=== PATIENT | male | born 1955 | race Hispanic/Latino ===

== ENCOUNTER 2021-02-10 08:14 | Outpatient (CLI) | payer MEDICARE | END 2021-02-10 08:15 | disposition home or self-care (01) | LOC: BICULT 08:14 | PROVIDERS: ATTEND Internal Medicine | DX: K74.60 Unspecified cirrhosis of liver (principal); R16.1 Splenomegaly, not elsewhere classified; K80.20 Calculus of gallbladder without cholecystitis without obstruction | CPT/HCPCS: 93975 ==

== ENCOUNTER 2021-03-19 08:07 | Outpatient (CLI) | payer MEDICARE | END 2021-03-19 08:08 | disposition home or self-care (01) | LOC: NM 08:07 | PROVIDERS: ATTEND Psychiatry & Neurology Neurology | DX: G20 Parkinson's disease (principal) | CPT/HCPCS: 78803; A9584 ==

== ENCOUNTER 2021-03-22 13:33 | Outpatient (CLI) | payer MEDICARE | END 2021-03-22 13:34 | disposition home or self-care (01) | LOC: BICMRI 13:33 | PROVIDERS: ATTEND Psychiatry & Neurology Neurology | DX: G20 Parkinson's disease (principal); M47.816 Spondylosis without myelopathy or radiculopathy, lumbar region; M47.817 Spondylosis without myelopathy or radiculopathy, lumbosacral region; M48.061 Spinal stenosis, lumbar region without neurogenic claudication; M48.07 Spinal stenosis, lumbosacral region | CPT/HCPCS: 70210; 72148 ==

== ENCOUNTER 2021-06-28 09:25 | Emergency (ER) | payer MEDICARE ==
[2021-06-28 09:48] LABS: #Eosinphils 0.2 thou/uL (0.0-0.7); #Lymphocytes 0.8 thou/uL (1.20-3.40); #Monocytes 0.3 thou/uL (0.11-0.59); #Neutrophils 1.9 thou/uL (1.40-6.50); %Basophils 0.6 % (0.0-1.0); %Eosinophils 6.4 % (0.0-10.0); %Lymphocytes 25.8 % (21.0-51.0); %Monocytes 9.3 % (0.0-10.0); Mean Corpuscular HGB CONC 33.7 g/dL (32.0-36.0); Mean Corpuscular Hemoglobin 35.6 pg (27.0-31.0); Mean Platelet Volume 9.8 fL (7.4-10.4); Platelet Count 45 thou/uL (130-400); RBC Distribution Width 12.5 % (11.5-14.5); Red Blood Cell (RBC) Count 4.21 mill/uL (4.70-6.10); White Blood Cell (WBC) Count 3.2 thou/uL (4.8-10.8)
[2021-06-28 10:05] LABS: INR-International Normal Ratio 1.2; PTT 31.3 sec (22.9-36.1); Prothrombin Time 15.2 sec (12.0-14.7)
[2021-06-28 10:08] LABS: ALT (SGPT) 43 U/L (8-55); AST (SGOT) 85 U/L (5-34); Albumin 2.9 g/dL (3.4-4.8); Alkaline Phosphatase 268 U/L (40-110); Anion Gap 8 mmol/L (10-20); BUN (Urea Nitrogen) 8 mg/dL (8.4-25.7); Bilirubin, Total 3.3 mg/dL (0.2-1.2); Calc. Creatinine Clearance 0 mL/min (70-130); Calcium 8.6 mg/dL (7.8-10.44); Carbon Dioxide 23 mmol/L (23-31); Chloride 109 mmol/L (98-107); Globulin 4.3 g/dL (2.4-3.5); Glucose 188 mg/dL (80-115); Protein, Total 7.2 g/dL (5.8-8.1); Sodium 136 mmol/L (136-145)
== END 2021-06-28 10:40 | disposition home or self-care (01) ==
LOC: ERS 09:25
DX: G51.0 Bell's palsy (principal); Z79.01 Long term (current) use of anticoagulants; Z79.899 Other long term (current) drug therapy
CPT/HCPCS: 70450; 80053; 82550; 84484; 85025; 85610; 85730; 93005; 94760

== ENCOUNTER 2021-11-25 11:25 | Day surgery (SDC) | payer MEDICARE ==
[2021-11-25 11:40] LABS: #Eosinphils 0.2 thou/uL (0.0-0.7); #Lymphocytes 0.8 thou/uL (1.20-3.40); %Basophils 0.4 % (0.0-1.0); %Eosinophils 3.1 % (0.0-10.0); %Lymphocytes 9.7 % (21.0-51.0); %Monocytes 11.9 % (0.0-10.0); Hemoglobin 14.4 g/dL (14.0-18.0); Mean Corpuscular HGB CONC 34.8 g/dL (32.0-36.0); Mean Corpuscular Hemoglobin 36.1 pg (27.0-31.0); Mean Platelet Volume 7.3 fL (7.4-10.4); Platelet Count 134 thou/uL (130-400); RBC Distribution Width 12.1 % (11.5-14.5); Red Blood Cell (RBC) Count 3.99 mill/uL (4.70-6.10)
[2021-11-25 12:02] LABS: INR-International Normal Ratio 1.5; Prothrombin Time 17.8 sec (12.0-14.7)
[2021-11-25] MEDS ORDERED: Lidocaine 1% PF 5 ML VIAL ONE (12:41)
[2021-11-25] MEDS ORDERED: Sodium Chloride 0.9% 10 ML ONE (12:41)
[2021-11-25] MEDS ORDERED: Sodium Bicarbonate 2.5 MEQ/5 ML VIAL ONE (12:41)
[2021-11-25] MEDS ORDERED: Albumin 25% 100 ML ONE (12:59)
[2021-11-27 12:14] LABS: Tube # EDTA
[2021-11-27 12:15] LABS: BF Color Yellow; Clarity Hazy (Clear)
[2021-11-27 15:04] LABS: Body Fluid Source Ascites Body Fluid
[2021-11-27 15:05] LABS: BF RBC Count - Manual 458 /cu.mm; BF WBC/Nonhematics Ct.-Manual 570 /cu.mm
[2021-11-27 15:25] LABS: BF Segmented Neutrophils 54 %; Cell Count Non Hematic 38 %; Lymphocytes 8 %
== END 2021-11-25 13:40 | disposition home or self-care (01) ==
LOC: ULT 11:25
PROVIDERS: ATTEND Physician Assistant Medical
PROC: 0W9G3ZZ Drainage of Peritoneal Cavity, Percutaneous Approach (ICD-10-PCS; principal; 2021-11-25)
DX: K74.60 Unspecified cirrhosis of liver (principal); R18.8 Other ascites; K80.20 Calculus of gallbladder without cholecystitis without obstruction; D73.2 Chronic congestive splenomegaly; B18.2 Chronic viral hepatitis C; G20 Parkinson's disease
CPT/HCPCS: 49083; 76705; 82042; 84155; 85025; 85610; 85730; 87070; 87205; 89051; P9047; 85060; 87077; 87186

== ENCOUNTER 2021-11-28 15:27 | Inpatient (IN) | payer MEDICARE ==
[2021-11-28] MEDS ORDERED: cefTRIAXone\\ROCEPHIN 2 GM VIAL ONE (16:36)
[2021-11-28] MEDS ORDERED: cefTRIAXone\\ROCEPHIN 1 GM VIAL ONE (16:39)
[2021-11-28 18:05] LABS: #Eosinphils 0.1 thou/uL (0.0-0.7); #Lymphocytes 0.6 thou/uL (1.20-3.40); #Monocytes 0.8 thou/uL (0.11-0.59); %Basophils 0.5 % (0.0-1.0); %Eosinophils 2.1 % (0.0-10.0); %Lymphocytes 9.7 % (21.0-51.0); %Monocytes 11.4 % (0.0-10.0); %Neutrophils 76.2 % (42.0-75.0); Hemoglobin 14.2 g/dL (14.0-18.0); Mean Corpuscular HGB CONC 34.6 g/dL (32.0-36.0); Mean Corpuscular Hemoglobin 35.9 pg (27.0-31.0); Mean Platelet Volume 7.4 fL (7.4-10.4); Platelet Count 112 thou/uL (130-400); RBC Distribution Width 11.9 % (11.5-14.5); Red Blood Cell (RBC) Count 3.95 mill/uL (4.70-6.10); White Blood Cell (WBC) Count 6.6 thou/uL (4.8-10.8)
[2021-11-28 18:13] LABS: INR-International Normal Ratio 1.5; PTT 35.7 sec (22.9-36.1); Prothrombin Time 17.9 sec (12.0-14.7)
[2021-11-28 18:17] LABS: Bilirubin Negative (Negative); Blood, Urine Negative (Negative); Clarity Clear (Clear); Glucose, Urine (Dipstick) Normal (Negative); Ketone, Urine Negative (Negative); Leukocyte Negative Leu/uL (Negative); Nitrite Negative (Negative); Protein, Urine (Dipstick) Negative (Neg-Trace); Specific Gravity, Urine 1.018 (1.002-1.036); Urobilinogen 6 mg/dL (Less than 2); pH, Urine 5.5 (5.0-9.0)
[2021-11-28 18:30] LABS: ALT (SGPT) 18 U/L (8-55); AST (SGOT) 38 U/L (5-34); Albumin 2.8 g/dL (3.4-4.8); Alkaline Phosphatase 193 U/L (40-110); Anion Gap 12 mmol/L (10-20); BUN (Urea Nitrogen) 10 mg/dL (8.4-25.7); Bilirubin, Total 3.6 mg/dL (0.2-1.2); Calc. Creatinine Clearance 0 mL/min (70-130); Calcium 8.7 mg/dL (7.8-10.44); Carbon Dioxide 23 mmol/L (23-31); Chloride 103 mmol/L (98-107); Globulin 4.5 g/dL (2.4-3.5); Glucose 149 mg/dL (80-115); Lipase 39 U/L (8-78); Potassium 3.5 mmol/L (3.5-5.1); Protein, Total 7.3 g/dL (5.8-8.1); Sodium 134 mmol/L (136-145)
[2021-11-28] MEDS ORDERED: HYDROcodone/Acetaminophen 5/325 mg Tablet PO PRN (19:48)
[2021-11-28] MEDS ORDERED: Ondansetron PF 4 MG/2 ML Vial IVP PRN (20:00)
[2021-11-28] MEDS ORDERED: Acetaminophen 325 MG TAB PO PRN (20:00)
[2021-11-28] MEDS ORDERED: Ondansetron ODT 4 MG TAB SL PRN (20:00)
[2021-11-28] MEDS ORDERED: Furosemide 40 MG/4 ML VIAL SLOW IVP SCH (20:15)
[2021-11-28] MEDS ORDERED: hydrALAZINE 20 MG/ML VIAL SLOW IVP PRN (20:23)
[2021-11-28 21:12] LABS: SARS-CoV-2 NAA Rapid Test Not Detected (NotDetected)
[2021-11-28] MEDS ORDERED: Famotidine/PF 20 mg/2ml Vial SLOW IVP SCH (21:45)
[2021-11-28] MEDS: Albumin 25% 25 GM/100 ML BOT IVPB SCH (21:58)
[2021-11-28] MEDS ORDERED: VANCOMYCIN 2 GRAM/400 ML BAG 2 GM in Premix Bag 1 BAG IVPB SCH (23:59)
[2021-11-29] MEDS: Albumin 25% 25 GM/100 ML BOT IVPB SCH ×4 (03:09→23:03)
[2021-11-29] MEDS ORDERED: Furosemide 40 MG/4 ML VIAL SLOW IVP SCH (06:00)
[2021-11-29] MEDS: Furosemide 20 MG/2 ML VIAL SLOW IVP SCH ×3 (06:18→22:14)
[2021-11-29 06:19] LABS: #Eosinphils 0.1 thou/uL (0.0-0.7); #Lymphocytes 0.4 thou/uL (1.20-3.40); #Monocytes 0.5 thou/uL (0.11-0.59); #Neutrophils 3.6 thou/uL (1.40-6.50); %Basophils 0.4 % (0.0-1.0); %Eosinophils 3.2 % (0.0-10.0); %Monocytes 11.3 % (0.0-10.0); %Neutrophils 76.1 % (42.0-75.0); Hemoglobin 12.5 g/dL (14.0-18.0); Mean Corpuscular HGB CONC 35.3 g/dL (32.0-36.0); Mean Corpuscular Hemoglobin 37.1 pg (27.0-31.0); Mean Platelet Volume 7.7 fL (7.4-10.4); Platelet Count 85 thou/uL (130-400); RBC Distribution Width 11.8 % (11.5-14.5); Red Blood Cell (RBC) Count 3.38 mill/uL (4.70-6.10); White Blood Cell (WBC) Count 4.7 thou/uL (4.8-10.8)
[2021-11-29 06:50] LABS: ALT (SGPT) 17 U/L (8-55); AST (SGOT) 31 U/L (5-34); Albumin 2.9 g/dL (3.4-4.8); Alkaline Phosphatase 128 U/L (40-110); Anion Gap 12 mmol/L (10-20); BUN (Urea Nitrogen) 9 mg/dL (8.4-25.7); Bilirubin, Total 4.1 mg/dL (0.2-1.2); Calc. Creatinine Clearance 177 mL/min (70-130); Calcium 8.7 mg/dL (7.8-10.44); Carbon Dioxide 23 mmol/L (23-31); Chloride 105 mmol/L (98-107); Globulin 3.6 g/dL (2.4-3.5); Glucose 116 mg/dL (80-115); Potassium 3.5 mmol/L (3.5-5.1); Protein, Total 6.5 g/dL (5.8-8.1); Sodium 136 mmol/L (136-145)
[2021-11-29] MEDS: cefTRIAXone\\ROCEPHIN 2 GM in Sodium Chloride 0.9% 100 ML IVPB SCH (08:49)
[2021-11-29] MEDS ORDERED: Famotidine/PF 20 mg/2ml Vial SLOW IVP SCH (09:00)
[2021-11-29] MEDS: VANCOMYCIN 1.75 GM/350 ML BAG 1.75 GM in Premix Bag 1 BAG IVPB SCH ×2 (11:40→23:00)
[2021-11-29] MEDS: GUAIFENESIN SF SOLN 200 MG/10 ML UDCUP PO PRN ×2 (15:12→23:28)
[2021-11-29] MEDS: Rifaximin 550 MG TAB PO SCH (22:28)
[2021-11-30 04:46] LABS: #Eosinphils 0.2 thou/uL (0.0-0.7); #Lymphocytes 0.4 thou/uL (1.20-3.40); #Monocytes 0.5 thou/uL (0.11-0.59); #Neutrophils 2.7 thou/uL (1.40-6.50); %Basophils 0.5 % (0.0-1.0); %Lymphocytes 9.6 % (21.0-51.0); %Monocytes 13.2 % (0.0-10.0); %Neutrophils 71.8 % (42.0-75.0); Hemoglobin 11.6 g/dL (14.0-18.0); Mean Corpuscular Hemoglobin 36.4 pg (27.0-31.0); Mean Platelet Volume 7.5 fL (7.4-10.4); Platelet Count 75 thou/uL (130-400); RBC Distribution Width 11.8 % (11.5-14.5); Red Blood Cell (RBC) Count 3.19 mill/uL (4.70-6.10); White Blood Cell (WBC) Count 3.8 thou/uL (4.8-10.8)
[2021-11-30 05:10] LABS: ALT (SGPT) 14 U/L (8-55); AST (SGOT) 29 U/L (5-34); Albumin 3.2 g/dL (3.4-4.8); Alkaline Phosphatase 123 U/L (40-110); Anion Gap 12 mmol/L (10-20); BUN (Urea Nitrogen) 8 mg/dL (8.4-25.7); Bilirubin, Total 3.3 mg/dL (0.2-1.2); Calc. Creatinine Clearance 177 mL/min (70-130); Calcium 8.8 mg/dL (7.8-10.44); Carbon Dioxide 22 mmol/L (23-31); Chloride 106 mmol/L (98-107); Globulin 3.2 g/dL (2.4-3.5); Glucose 112 mg/dL (80-115); Potassium 3.3 mmol/L (3.5-5.1); Protein, Total 6.4 g/dL (5.8-8.1); Sodium 137 mmol/L (136-145)
[2021-11-30] MEDS: Albumin 25% 25 GM/100 ML BOT IVPB SCH ×2 (06:14→17:45)
[2021-11-30] MEDS: cefTRIAXone\\ROCEPHIN 2 GM in Sodium Chloride 0.9% 100 ML IVPB SCH (06:16)
[2021-11-30] MEDS: Furosemide 20 MG/2 ML VIAL SLOW IVP SCH ×3 (06:21→22:34)
[2021-11-30 06:27] VITALS: BMI 387.4
[2021-11-30] MEDS: Spironolactone 100 MG TAB PO SCH (09:11)
[2021-11-30] MEDS: Rifaximin 550 MG TAB PO SCH ×2 (09:11→22:34)
[2021-11-30 11:40] LABS: Vancomycin, Trough 14.8 ug/mL
[2021-11-30] MEDS ORDERED: Potassium Chloride 20 MEQ TAB PO SCH (14:15)
[2021-11-30] MEDS: traMADol HCl 50 MG TAB PO PRN (15:25)
[2021-11-30] MEDS: VANCOMYCIN 1.75 GM/350 ML BAG 1.75 GM in Premix Bag 1 BAG IVPB SCH (17:45)
[2021-11-30] MEDS: Carbidopa/Levodopa CR 50-200 mg Tablet PO SCH (22:34)
[2021-11-30] MEDS: GUAIFENESIN SF SOLN 200 MG/10 ML UDCUP PO PRN (22:45)
[2021-12-01] MEDS ORDERED: Albumin 25% 25 GM/100 ML BOT IVPB SCH (01:00)
[2021-12-01] MEDS: cefTRIAXone\\ROCEPHIN 2 GM in Sodium Chloride 0.9% 100 ML IVPB SCH (05:27)
[2021-12-01] MEDS: Furosemide 20 MG/2 ML VIAL SLOW IVP SCH ×2 (05:28→13:38)
[2021-12-01 07:01] LABS: #Eosinphils 0.2 thou/uL (0.0-0.7); #Lymphocytes 0.4 thou/uL (1.20-3.40); #Monocytes 0.6 thou/uL (0.11-0.59); #Neutrophils 3.4 thou/uL (1.40-6.50); %Basophils 0.6 % (0.0-1.0); %Eosinophils 4.1 % (0.0-10.0); %Monocytes 12.4 % (0.0-10.0); %Neutrophils 73.9 % (42.0-75.0); Hemoglobin 12.9 g/dL (14.0-18.0); Mean Corpuscular HGB CONC 34.3 g/dL (32.0-36.0); Mean Corpuscular Hemoglobin 35.9 pg (27.0-31.0); Mean Platelet Volume 7.7 fL (7.4-10.4); Platelet Count 74 thou/uL (130-400); Red Blood Cell (RBC) Count 3.59 mill/uL (4.70-6.10); White Blood Cell (WBC) Count 4.6 thou/uL (4.8-10.8)
[2021-12-01 07:11] LABS: ALT (SGPT) 7 U/L (8-55); AST (SGOT) 42 U/L (5-34); Albumin 3.7 g/dL (3.4-4.8); Alkaline Phosphatase 129 U/L (40-110); Anion Gap 13 mmol/L (10-20); BUN (Urea Nitrogen) 7 mg/dL (8.4-25.7); Bilirubin, Total 3.7 mg/dL (0.2-1.2); Calc. Creatinine Clearance 175 mL/min (70-130); Calcium 9.2 mg/dL (7.8-10.44); Carbon Dioxide 24 mmol/L (23-31); Chloride 107 mmol/L (98-107); Globulin 3.4 g/dL (2.4-3.5); Glucose 108 mg/dL (80-115); Potassium 3.5 mmol/L (3.5-5.1); Protein, Total 7.1 g/dL (5.8-8.1); Sodium 140 mmol/L (136-145)
[2021-12-01] MEDS: Amlodipine 5 MG TAB PO SCH (09:00)
[2021-12-01] MEDS: Carbidopa/Levodopa CR 50-200 mg Tablet PO SCH ×2 (09:00→21:00)
[2021-12-01] MEDS: Spironolactone 100 MG TAB PO SCH (09:00)
[2021-12-01] MEDS: Rifaximin 550 MG TAB PO SCH ×2 (09:01→21:00)
[2021-12-01] MEDS: Ferrous Sulfate 325 MG TAB PO SCH (09:01)
[2021-12-01] MEDS: Escitalopram Oxalate 10 mg Tablet PO SCH (09:04)
[2021-12-01] MEDS: Albumin 25% 25 GM/100 ML BOT IVPB SCH (09:04)
[2021-12-01] MEDS: traMADol HCl 50 MG TAB PO PRN (21:00)
[2021-12-02] MEDS: cefTRIAXone\\ROCEPHIN 2 GM in Sodium Chloride 0.9% 100 ML IVPB SCH (05:54)
[2021-12-02 07:05] LABS: #Basophils 0.1 thou/uL (0.0-0.2); #Eosinphils 0.2 thou/uL (0.0-0.7); #Lymphocytes 0.4 thou/uL (1.20-3.40); #Monocytes 0.6 thou/uL (0.11-0.59); #Neutrophils 3.4 thou/uL (1.40-6.50); %Basophils 1.1 % (0.0-1.0); %Eosinophils 4.3 % (0.0-10.0); %Lymphocytes 8.1 % (21.0-51.0); %Monocytes 12.3 % (0.0-10.0); %Neutrophils 74.2 % (42.0-75.0); Mean Corpuscular HGB CONC 35.3 g/dL (32.0-36.0); Mean Corpuscular Hemoglobin 36.7 pg (27.0-31.0); Mean Platelet Volume 8.1 fL (7.4-10.4); Platelet Count 66 thou/uL (130-400); RBC Distribution Width 11.8 % (11.5-14.5); Red Blood Cell (RBC) Count 3.27 mill/uL (4.70-6.10); White Blood Cell (WBC) Count 4.6 thou/uL (4.8-10.8)
[2021-12-02 07:10] LABS: Anion Gap 12 mmol/L (10-20); BUN (Urea Nitrogen) 9 mg/dL (8.4-25.7); Calc. Creatinine Clearance 164 mL/min (70-130); Calcium 8.5 mg/dL (7.8-10.44); Carbon Dioxide 22 mmol/L (23-31); Chloride 106 mmol/L (98-107); Glucose 102 mg/dL (80-115); Magnesium 1.8 mg/dL (1.6-2.6); Phosphorus 2.5 mg/dL (2.3-4.7); Potassium 3.3 mmol/L (3.5-5.1); Sodium 137 mmol/L (136-145)
[2021-12-02] MEDS: Spironolactone 100 MG TAB PO SCH (09:32)
[2021-12-02] MEDS: Albumin 25% 25 GM/100 ML BOT IVPB SCH (09:32)
[2021-12-02] MEDS: Amlodipine 5 MG TAB PO SCH (09:33)
[2021-12-02] MEDS: Furosemide 40 MG TAB PO SCH ×2 (09:33→14:50)
[2021-12-02] MEDS: Rifaximin 550 MG TAB PO SCH ×2 (09:33→22:04)
[2021-12-02] MEDS: Escitalopram Oxalate 10 mg Tablet PO SCH (09:33)
[2021-12-02] MEDS: Carbidopa/Levodopa CR 50-200 mg Tablet PO SCH ×2 (09:33→22:04)
[2021-12-02] MEDS: Ferrous Sulfate 325 MG TAB PO SCH (09:34)
[2021-12-02] MEDS: GUAIFENESIN SF SOLN 200 MG/10 ML UDCUP PO PRN (09:37)
[2021-12-03] MEDS: cefTRIAXone\\ROCEPHIN 2 GM in Sodium Chloride 0.9% 100 ML IVPB SCH (05:19)
[2021-12-03] MEDS: Carbidopa/Levodopa CR 50-200 mg Tablet PO SCH (08:49)
[2021-12-03] MEDS: Amlodipine 5 MG TAB PO SCH (08:50)
[2021-12-03] MEDS: Escitalopram Oxalate 10 mg Tablet PO SCH (08:50)
[2021-12-03] MEDS: Spironolactone 100 MG TAB PO SCH (08:50)
[2021-12-03] MEDS: Ferrous Sulfate 325 MG TAB PO SCH (08:50)
[2021-12-03] MEDS: Furosemide 40 MG TAB PO SCH ×2 (08:50→15:34)
[2021-12-03] MEDS: Rifaximin 550 MG TAB PO SCH (08:50)
[2021-12-03 12:00] VITALS: BP 121/78; TEMP 97.8
[2021-12-03] MEDS: GUAIFENESIN SF SOLN 200 MG/10 ML UDCUP PO PRN (13:13)
[2021-12-07] MEDS ORDERED: Cholecalciferol 1,000 UNITS (25 MCG) TAB PO SCH (09:00)
== END 2021-12-03 16:30 | disposition home or self-care (01) | DRG 371 ==
LOC: ERS 15:27 → SJJU 19:28 → OBSVTOIN 11-29 11:44
PROVIDERS: ADMIT Internal Medicine; ATTEND Family Medicine
DX: K65.2 Spontaneous bacterial peritonitis (principal); K72.00 Acute and subacute hepatic failure without coma; L03.311 Cellulitis of abdominal wall; R18.8 Other ascites; I85.10 Secondary esophageal varices without bleeding; Z20.822 Contact with and (suspected) exposure to COVID-19; Z23 Encounter for immunization; G20 Parkinson's disease; K74.60 Unspecified cirrhosis of liver; I10 Essential (primary) hypertension; B18.2 Chronic viral hepatitis C; B96.20 Unspecified Escherichia coli [E. coli] as the cause of diseases classified elsewhere; E87.6 Hypokalemia; M54.6 Pain in thoracic spine; Z79.899 Other long term (current) drug therapy
CPT/HCPCS: 36415; 80048; 80053; 80202; 81003; 82140; 83605; 83690; 83735; 84100; 85025; 85610; 85730; 87040; 90471; 90732; 93005; 96375; 96376; G0009; G0378; J0696; J1940; J3370; J3490; P9047; S0028; U0002

== ENCOUNTER 2022-01-11 00:26 | Inpatient (IN) | payer MEDICARE ==
[2022-01-11] MEDS ORDERED: Ondansetron PF 4 MG/2 ML Vial ONE (00:56)
[2022-01-11 00:58] LABS: #Eosinphils 0.1 thou/uL (0.0-0.7); #Lymphocytes 1.9 thou/uL (1.20-3.40); #Monocytes 0.8 thou/uL (0.11-0.59); #Neutrophils 11.5 thou/uL (1.40-6.50); %Basophils 0.2 % (0.0-1.0); %Eosinophils 0.4 % (0.0-10.0); %Lymphocytes 13.2 % (21.0-51.0); %Monocytes 5.9 % (0.0-10.0); %Neutrophils 80.4 % (42.0-75.0); Mean Corpuscular HGB CONC 31.6 g/dL (32.0-36.0); Mean Corpuscular Hemoglobin 34.7 pg (27.0-31.0); Mean Platelet Volume 9.4 fL (7.4-10.4); Platelet Count 88 thou/uL (130-400); RBC Distribution Width 14.2 % (11.5-14.5); Red Blood Cell (RBC) Count 2.32 mill/uL (4.70-6.10); White Blood Cell (WBC) Count 14.3 thou/uL (4.8-10.8)
[2022-01-11 01:08] LABS: Bilirubin Negative (Negative); Blood, Urine Negative (Negative); Clarity Clear (Clear); Glucose, Urine (Dipstick) Normal (Negative); Ketone, Urine 20 mg/dL (Negative); Leukocyte Negative Leu/uL (Negative); Nitrite Negative (Negative); Protein, Urine (Dipstick) 20 mg/dL (Neg-Trace); Specific Gravity, Urine 1.022 (1.002-1.036); Urobilinogen Normal mg/dL (Less than 2)
[2022-01-11 01:15] LABS: INR-International Normal Ratio 2.2; PTT 39.9 sec (22.9-36.1); Prothrombin Time 25.2 sec (12.0-14.7)
[2022-01-11 01:17] LABS: ALT (SGPT) 16 U/L (8-55); AST (SGOT) 29 U/L (5-34); Albumin 2.4 g/dL (3.4-4.8); Alkaline Phosphatase 73 U/L (40-110); Anion Gap 22 mmol/L (10-20); BUN (Urea Nitrogen) 52 mg/dL (8.4-25.7); Bilirubin, Total 4.5 mg/dL (0.2-1.2); Calc. Creatinine Clearance 0 mL/min (70-130); Calcium 8.4 mg/dL (7.8-10.44); Carbon Dioxide 11 mmol/L (23-31); Chloride 106 mmol/L (98-107); Globulin 2.9 g/dL (2.4-3.5); Glucose 217 mg/dL (80-115); Lipase 40 U/L (8-78); Potassium 5.2 mmol/L (3.5-5.1); Protein, Total 5.3 g/dL (5.8-8.1); Sodium 134 mmol/L (136-145)
[2022-01-11 02:33] LABS: SARS-CoV-2 NAA Rapid Test Not Detected (NotDetected)
[2022-01-11] MEDS ORDERED: Vancomycin 1 GM/200 ML BAG ONE ×2 (04:09→05:21)
[2022-01-11] MEDS ORDERED: Piperacillin/Tazobactam 3.375 GM VIAL ONE (04:09)
[2022-01-11] MEDS ORDERED: Pantoprazole 40 MG VIAL ONE ×2 (04:09→07:07)
[2022-01-11] MEDS ORDERED: Ondansetron PF 4 MG/2 ML Vial IVP PRN (06:40)
[2022-01-11] MEDS ORDERED: Pantoprazole 40 MG VIAL IVP SCH (06:45)
[2022-01-11] MEDS ORDERED: Octreotide Acetate 50 MCG/ML AMP SLOW IVP SCH (06:45)
[2022-01-11] MEDS ORDERED: Pantoprazole 80 MG in Sodium Chloride 0.9% 100 ML IVPB SCH (06:45)
[2022-01-11] MEDS ORDERED: Octreotide Acetate 100 MCG/ML VIAL ONE (06:55)
[2022-01-11] MEDS ORDERED: Dextrose 5% in Water 1,000 ML IV PRN (06:58)
[2022-01-11] MEDS ORDERED: Dextrose 50% Abboject 50 ML SYRINGE SLOW IVP PRN (06:58)
[2022-01-11] MEDS ORDERED: HumaLOG 300 UNITS/3 ML VIAL SC PRN ×2 (06:58)
[2022-01-11] MEDS ORDERED: cefTRIAXone\\ROCEPHIN 2 GM in Sodium Chloride 0.9% 100 ML IVPB SCH (07:00)
[2022-01-11] MEDS ORDERED: cefTRIAXone\\ROCEPHIN 2 GM VIAL ONE (07:13)
[2022-01-11] MEDS ORDERED: Pantoprazole 80 MG, Admixture Fee 1 EACH in Sodium Chloride 0.9% 100 ML IVPB SCH (07:15)
[2022-01-11 07:18] VITALS: BMI 36.0
[2022-01-11 07:30] LABS: Hemoglobin 6.8 g/dL (14.0-18.0)
[2022-01-11] MEDS ORDERED: Vancomycin 1 GM in Premix Bag 1 BAG IVPB SCH (07:45)
[2022-01-11] MEDS: Rifaximin 550 MG TAB PO SCH ×2 (08:19→21:25)
[2022-01-11 08:31] LABS: Lactic Acid 12.7 mmol/L (0.5-2.2)
[2022-01-11] MEDS ORDERED: Sodium Chloride 0.9% (PF) 10 ML VIAL FS PRN (09:30)
[2022-01-11] MEDS: Pantoprazole 40 MG VIAL IVP SCH ×2 (09:50→21:26)
[2022-01-11] MEDS: Albumin 25% 25 GM/100 ML BOT IVPB SCH ×3 (10:53→19:24)
[2022-01-11] MEDS ORDERED: Cefepime 1 GM in Sodium Chloride 0.9% 100 ML IVPB SCH (12:00)
[2022-01-11] MEDS ORDERED: Iopamidol 370 76% 100 ML VIAL ONE (12:13)
[2022-01-11 14:46] LABS: Hemoglobin 7.3 g/dL (14.0-18.0)
[2022-01-11] MEDS ORDERED: Phytonadione 10 MG in Sodium Chloride 0.9% 50 ML IVPB SCH (15:30)
[2022-01-11] MEDS: Cefepime 1 GM in Sodium Chloride 0.9% 100 ML IVPB SCH (16:34)
[2022-01-11] MEDS: Vancomycin 25 MG/ML Oral SOLN PO SCH ×2 (19:24→23:22)
[2022-01-11 23:42] LABS: Hemoglobin 5.8 g/dL (14.0-18.0)
[2022-01-12] MEDS: Cefepime 1 GM in Sodium Chloride 0.9% 100 ML IVPB SCH ×2 (03:02→17:13)
[2022-01-12] MEDS: Albumin 25% 25 GM/100 ML BOT IVPB SCH ×2 (03:11→07:24)
[2022-01-12] MEDS: Vancomycin 25 MG/ML Oral SOLN PO SCH ×3 (06:08→17:13)
[2022-01-12 06:38] LABS: #Eosinphils 0.1 thou/uL (0.0-0.7); #Lymphocytes 0.6 thou/uL (1.20-3.40); #Monocytes 0.4 thou/uL (0.11-0.59); #Neutrophils 2.5 thou/uL (1.40-6.50); %Basophils 1.1 % (0.0-1.0); %Eosinophils 3.7 % (0.0-10.0); %Lymphocytes 17.3 % (21.0-51.0); %Monocytes 10.2 % (0.0-10.0); %Neutrophils 67.8 % (42.0-75.0); Mean Corpuscular HGB CONC 33.6 g/dL (32.0-36.0); Mean Corpuscular Hemoglobin 33.5 pg (27.0-31.0); Mean Corpuscular Volume 99.9 fL (78.0-98.0); Mean Platelet Volume 8.5 fL (7.4-10.4); Platelet Count 38 thou/uL (130-400); RBC Distribution Width 15.8 % (11.5-14.5); Red Blood Cell (RBC) Count 2.09 mill/uL (4.70-6.10); White Blood Cell (WBC) Count 3.7 thou/uL (4.8-10.8)
[2022-01-12 06:59] LABS: Anion Gap 9 mmol/L (10-20); BUN (Urea Nitrogen) 36 mg/dL (8.4-25.7); Calc. Creatinine Clearance 147 mL/min (70-130); Calcium 8.6 mg/dL (7.8-10.44); Carbon Dioxide 22 mmol/L (23-31); Chloride 114 mmol/L (98-107); Glucose 138 mg/dL (80-115); Potassium 4.1 mmol/L (3.5-5.1); Sodium 141 mmol/L (136-145)
[2022-01-12] MEDS ORDERED: Ketamine 50 MG/ML (10ML VIAL) ONE (07:09)
[2022-01-12 07:12] LABS: ALT (SGPT) 21 U/L (8-55); AST (SGOT) 45 U/L (5-34); Albumin 3.2 g/dL (3.4-4.8); Alkaline Phosphatase 49 U/L (40-110); Bilirubin, Direct 1.9 mg/dL (0.1-0.3); Bilirubin, Total 4.6 mg/dL (0.2-1.2); Protein, Total 5.5 g/dL (5.8-8.1)
[2022-01-12] MEDS: Rifaximin 550 MG TAB PO SCH ×2 (07:15→20:40)
[2022-01-12] MEDS: Pantoprazole 40 MG VIAL IVP SCH ×2 (07:24→20:41)
[2022-01-12] MEDS ORDERED: VANCOMYCIN 2 GRAM/400 ML BAG 2 GM in Premix Bag 1 BAG IVPB SCH (08:00)
[2022-01-12] MEDS ORDERED: PROPOFOL 200 MG/20 ML VIAL ONE (08:03)
[2022-01-12] MEDS ORDERED: ePHEDrine 50 MG/ML VIAL ONE (08:03)
[2022-01-12 08:23] LABS: INR-International Normal Ratio 2.4; Prothrombin Time 26.2 sec (12.0-14.7)
[2022-01-12] MEDS ORDERED: FLU VACC QS2021-22(65YR UP)/PF 240 MCG/0.7 ML SYRINGE IM ONE (11:45)
[2022-01-12 14:37] LABS: Hemoglobin 8.1 g/dL (14.0-18.0)
[2022-01-12] MEDS: Carbidopa/Levodopa CR 50-200 mg Tablet PO SCH (20:40)
[2022-01-12 23:22] LABS: Hemoglobin 7.6 g/dL (14.0-18.0)
[2022-01-13] MEDS: Vancomycin 25 MG/ML Oral SOLN PO SCH ×4 (00:01→18:23)
[2022-01-13] MEDS: Octreotide Acetate 1,250 MCG in Sodium Chloride 0.9% 250 ML 250 ML IVPB SCH (03:26)
[2022-01-13] MEDS: Cefepime 1 GM in Sodium Chloride 0.9% 100 ML IVPB SCH ×2 (03:26→15:52)
[2022-01-13 03:45] LABS: INR-International Normal Ratio 1.8; Prothrombin Time 21.3 sec (12.0-14.7)
[2022-01-13 03:48] LABS: Anion Gap 10 mmol/L (10-20); BUN (Urea Nitrogen) 21 mg/dL (8.4-25.7); Calc. Creatinine Clearance 143 mL/min (70-130); Carbon Dioxide 20 mmol/L (23-31); Chloride 109 mmol/L (98-107); Glucose 123 mg/dL (80-115); Potassium 3.6 mmol/L (3.5-5.1); Sodium 135 mmol/L (136-145)
[2022-01-13 03:51] LABS: Band 2 % (5-11); Hemoglobin 8.1 g/dL (14.0-18.0); Hypochromia SLIGHT = 6-15 cells (100X) (0-5/hpf); Lymphocytes 4 % (21-51); MDiff Complete? YES; Mean Corpuscular HGB CONC 33.7 g/dL (32.0-36.0); Mean Corpuscular Hemoglobin 33.5 pg (27.0-31.0); Mean Corpuscular Volume 99.3 fL (78.0-98.0); Mean Platelet Volume 8.5 fL (7.4-10.4); Monocytes 6 % (0-10); Neutrophil 88 % (42-75); Nucleated RBC 1 % (0); Platelet Count 41 thou/uL (130-400); Platelet Morphology Comment Appears Decreased; RBC Distribution Width 15.9 % (11.5-14.5); Red Blood Cell (RBC) Count 2.41 mill/uL (4.70-6.10); White Blood Cell (WBC) Count 3.3 thou/uL (4.8-10.8)
[2022-01-13 03:56] LABS: ALT (SGPT) 18 U/L (8-55); AST (SGOT) 91 U/L (5-34); Albumin 3.2 g/dL (3.4-4.8); Alkaline Phosphatase 53 U/L (40-110); Bilirubin, Direct 1.7 mg/dL (0.1-0.3); Bilirubin, Total 3.9 mg/dL (0.2-1.2); Protein, Total 5.3 g/dL (5.8-8.1)
[2022-01-13 07:26] LABS: Vancomycin, Trough 1.1 ug/mL
[2022-01-13] MEDS: Carbidopa/Levodopa CR 50-200 mg Tablet PO SCH ×2 (08:11→22:30)
[2022-01-13] MEDS: Pantoprazole 40 MG VIAL IVP SCH ×2 (08:11→22:32)
[2022-01-13] MEDS: Rifaximin 550 MG TAB PO SCH ×2 (08:12→22:31)
[2022-01-13] MEDS: Escitalopram Oxalate 10 mg Tablet PO SCH (08:13)
[2022-01-13] MEDS: Tamsulosin HCl 0.4 MG CAP PO SCH (08:13)
[2022-01-14] MEDS: Vancomycin 25 MG/ML Oral SOLN PO SCH ×5 (01:25→23:43)
[2022-01-14 04:16] LABS: #Eosinphils 0.2 thou/uL (0.0-0.7); #Lymphocytes 0.5 thou/uL (1.20-3.40); #Monocytes 0.4 thou/uL (0.11-0.59); #Neutrophils 2.7 thou/uL (1.40-6.50); %Eosinophils 5.8 % (0.0-10.0); %Monocytes 10.5 % (0.0-10.0); %Neutrophils 70.8 % (42.0-75.0); Hemoglobin 8.3 g/dL (14.0-18.0); Mean Corpuscular HGB CONC 33.6 g/dL (32.0-36.0); Mean Corpuscular Hemoglobin 33.5 pg (27.0-31.0); Mean Corpuscular Volume 99.6 fL (78.0-98.0); Mean Platelet Volume 9.3 fL (7.4-10.4); Platelet Count 49 thou/uL (130-400); RBC Distribution Width 15.6 % (11.5-14.5); Red Blood Cell (RBC) Count 2.48 mill/uL (4.70-6.10); White Blood Cell (WBC) Count 3.8 thou/uL (4.8-10.8)
[2022-01-14 04:30] LABS: Anion Gap 9 mmol/L (10-20); BUN (Urea Nitrogen) 13 mg/dL (8.4-25.7); Calc. Creatinine Clearance 154 mL/min (70-130); Calcium 7.8 mg/dL (7.8-10.44); Carbon Dioxide 22 mmol/L (23-31); Chloride 105 mmol/L (98-107); Glucose 134 mg/dL (80-115); Potassium 3.3 mmol/L (3.5-5.1); Sodium 133 mmol/L (136-145)
[2022-01-14 04:33] LABS: ALT (SGPT) 22 U/L (8-55); AST (SGOT) 74 U/L (5-34); Alkaline Phosphatase 71 U/L (40-110); Bilirubin, Direct 1.9 mg/dL (0.1-0.3); Bilirubin, Total 3.5 mg/dL (0.2-1.2); Protein, Total 5.3 g/dL (5.8-8.1)
[2022-01-14] MEDS: Cefepime 1 GM in Sodium Chloride 0.9% 100 ML IVPB SCH ×2 (05:58→15:35)
[2022-01-14] MEDS: Tamsulosin HCl 0.4 MG CAP PO SCH (08:56)
[2022-01-14] MEDS: Pantoprazole 40 MG VIAL IVP SCH ×2 (08:56→20:40)
[2022-01-14] MEDS: Escitalopram Oxalate 10 mg Tablet PO SCH (08:56)
[2022-01-14] MEDS: Rifaximin 550 MG TAB PO SCH ×2 (08:56→20:40)
[2022-01-14] MEDS: Carbidopa/Levodopa CR 50-200 mg Tablet PO SCH ×2 (09:00→20:40)
[2022-01-14] MEDS: Octreotide Acetate 1,250 MCG in Sodium Chloride 0.9% 250 ML 250 ML IVPB SCH (12:30)
[2022-01-15] MEDS: Cefepime 1 GM in Sodium Chloride 0.9% 100 ML IVPB SCH ×2 (03:46→15:29)
[2022-01-15] MEDS: Vancomycin 25 MG/ML Oral SOLN PO SCH ×4 (05:09→23:30)
[2022-01-15 06:09] LABS: ALT (SGPT) Less than 7 U/L (8-55); AST (SGOT) 44 U/L (5-34); Albumin 2.8 g/dL (3.4-4.8); Alkaline Phosphatase 83 U/L (40-110); Anion Gap 8 mmol/L (10-20); BUN (Urea Nitrogen) 11 mg/dL (8.4-25.7); Calc. Creatinine Clearance 166 mL/min (70-130); Calcium 7.6 mg/dL (7.8-10.44); Carbon Dioxide 21 mmol/L (23-31); Chloride 107 mmol/L (98-107); Globulin 2.2 g/dL (2.4-3.5); Glucose 132 mg/dL (80-115); Potassium 3.4 mmol/L (3.5-5.1); Sodium 133 mmol/L (136-145)
[2022-01-15 06:34] LABS: #Eosinphils 0.2 thou/uL (0.0-0.7); #Lymphocytes 0.5 thou/uL (1.20-3.40); #Monocytes 0.5 thou/uL (0.11-0.59); #Neutrophils 2.4 thou/uL (1.40-6.50); %Basophils 0.6 % (0.0-1.0); %Eosinophils 5.3 % (0.0-10.0); %Lymphocytes 14.9 % (21.0-51.0); %Monocytes 12.9 % (0.0-10.0); %Neutrophils 66.3 % (42.0-75.0); Hemoglobin 7.9 g/dL (14.0-18.0); Mean Corpuscular HGB CONC 32.7 g/dL (32.0-36.0); Mean Corpuscular Hemoglobin 33.8 pg (27.0-31.0); Platelet Count 46 thou/uL (130-400); RBC Distribution Width 17.8 % (11.5-14.5); Red Blood Cell (RBC) Count 2.35 mill/uL (4.70-6.10); White Blood Cell (WBC) Count 3.6 thou/uL (4.8-10.8)
[2022-01-15 06:35] LABS: Anisocytosis SLIGHT = 6-15 cells (100X) (0-5/hpf); MDiff Complete? YES; Platelet Morphology Comment Appears Decreased; Polychromasia SLIGHT = 2-3 cells (100X) (0-2/hpf)
[2022-01-15] MEDS: Furosemide 40 MG TAB PO SCH (08:09)
[2022-01-15] MEDS: Spironolactone 100 MG TAB PO SCH (08:09)
[2022-01-15] MEDS: Escitalopram Oxalate 10 mg Tablet PO SCH (08:09)
[2022-01-15] MEDS: Carbidopa/Levodopa CR 50-200 mg Tablet PO SCH ×2 (08:10→21:30)
[2022-01-15] MEDS: Rifaximin 550 MG TAB PO SCH ×2 (08:10→21:30)
[2022-01-15] MEDS: Tamsulosin HCl 0.4 MG CAP PO SCH (08:10)
[2022-01-15] MEDS: Pantoprazole 40 MG VIAL IVP SCH ×2 (08:10→21:30)
[2022-01-15] MEDS: EPCLUSA PO SCH (08:13)
[2022-01-15] MEDS: Octreotide Acetate 1,250 MCG in Sodium Chloride 0.9% 250 ML 250 ML IVPB SCH (11:48)
[2022-01-16] MEDS: Cefepime 1 GM in Sodium Chloride 0.9% 100 ML IVPB SCH ×2 (04:38→16:06)
[2022-01-16] MEDS: Vancomycin 25 MG/ML Oral SOLN PO SCH ×3 (05:47→17:27)
[2022-01-16 06:20] LABS: #Eosinphils 0.2 thou/uL (0.0-0.7); #Lymphocytes 0.6 thou/uL (1.20-3.40); #Monocytes 0.4 thou/uL (0.11-0.59); %Basophils 0.8 % (0.0-1.0); %Eosinophils 5.9 % (0.0-10.0); %Lymphocytes 17.7 % (21.0-51.0); %Monocytes 12.6 % (0.0-10.0); %Neutrophils 63.1 % (42.0-75.0); Mean Corpuscular Hemoglobin 34.1 pg (27.0-31.0); Mean Platelet Volume 9.1 fL (7.4-10.4); Platelet Count 46 thou/uL (130-400); RBC Distribution Width 17.4 % (11.5-14.5); Red Blood Cell (RBC) Count 2.33 mill/uL (4.70-6.10); White Blood Cell (WBC) Count 3.2 thou/uL (4.8-10.8)
[2022-01-16] MEDS: Furosemide 40 MG TAB PO SCH (06:30)
[2022-01-16 06:31] LABS: ALT (SGPT) Less than 7 U/L (8-55); AST (SGOT) 32 U/L (5-34); Albumin 2.6 g/dL (3.4-4.8); Alkaline Phosphatase 79 U/L (40-110); Anion Gap 10 mmol/L (10-20); BUN (Urea Nitrogen) 9 mg/dL (8.4-25.7); Bilirubin, Total 3.1 mg/dL (0.2-1.2); Calc. Creatinine Clearance 171 mL/min (70-130); Calcium 7.4 mg/dL (7.8-10.44); Carbon Dioxide 22 mmol/L (23-31); Chloride 108 mmol/L (98-107); Globulin 2.3 g/dL (2.4-3.5); Glucose 113 mg/dL (80-115); Potassium 3.6 mmol/L (3.5-5.1); Protein, Total 4.9 g/dL (5.8-8.1); Sodium 136 mmol/L (136-145)
[2022-01-16] MEDS: Tamsulosin HCl 0.4 MG CAP PO SCH (08:49)
[2022-01-16] MEDS: Carbidopa/Levodopa CR 50-200 mg Tablet PO SCH ×2 (08:49→20:16)
[2022-01-16] MEDS: Escitalopram Oxalate 10 mg Tablet PO SCH (08:49)
[2022-01-16] MEDS: Rifaximin 550 MG TAB PO SCH ×2 (08:49→20:15)
[2022-01-16] MEDS: Pantoprazole 40 MG VIAL IVP SCH ×2 (08:50→20:15)
[2022-01-16] MEDS: Spironolactone 100 MG TAB PO SCH (08:50)
[2022-01-16] MEDS: EPCLUSA PO SCH (08:50)
[2022-01-16] MEDS ORDERED: Furosemide 20 MG/2 ML VIAL SLOW IVP SCH (13:15)
[2022-01-17] MEDS: Vancomycin 25 MG/ML Oral SOLN PO SCH ×3 (00:37→12:20)
[2022-01-17] MEDS: Cefepime 1 GM in Sodium Chloride 0.9% 100 ML IVPB SCH (03:35)
[2022-01-17 07:56] VITALS: BP 103/66; TEMP 98.3
[2022-01-17 07:56] LABS: #Eosinphils 0.2 thou/uL (0.0-0.7); #Lymphocytes 0.7 thou/uL (1.20-3.40); #Monocytes 0.4 thou/uL (0.11-0.59); #Neutrophils 1.9 thou/uL (1.40-6.50); %Basophils 0.6 % (0.0-1.0); %Eosinophils 5.6 % (0.0-10.0); %Lymphocytes 21.8 % (21.0-51.0); %Monocytes 12.3 % (0.0-10.0); %Neutrophils 59.8 % (42.0-75.0); Mean Corpuscular HGB CONC 34.1 g/dL (32.0-36.0); Mean Corpuscular Hemoglobin 34.9 pg (27.0-31.0); Mean Platelet Volume 8.8 fL (7.4-10.4); Platelet Count 50 thou/uL (130-400); RBC Distribution Width 16.2 % (11.5-14.5); Red Blood Cell (RBC) Count 2.29 mill/uL (4.70-6.10); White Blood Cell (WBC) Count 3.2 thou/uL (4.8-10.8)
[2022-01-17 08:06] LABS: ALT (SGPT) 8 U/L (8-55); AST (SGOT) 32 U/L (5-34); Albumin 2.8 g/dL (3.4-4.8); Alkaline Phosphatase 96 U/L (40-110); Anion Gap 7 mmol/L (10-20); BUN (Urea Nitrogen) 9 mg/dL (8.4-25.7); Calc. Creatinine Clearance 152 mL/min (70-130); Calcium 7.6 mg/dL (7.8-10.44); Carbon Dioxide 25 mmol/L (23-31); Chloride 107 mmol/L (98-107); Globulin 2.5 g/dL (2.4-3.5); Glucose 114 mg/dL (80-115); Potassium 3.6 mmol/L (3.5-5.1); Protein, Total 5.3 g/dL (5.8-8.1); Sodium 135 mmol/L (136-145)
[2022-01-17] MEDS: Spironolactone 100 MG TAB PO SCH (08:22)
[2022-01-17] MEDS: Escitalopram Oxalate 10 mg Tablet PO SCH (08:22)
[2022-01-17] MEDS: Rifaximin 550 MG TAB PO SCH (08:22)
[2022-01-17] MEDS: Tamsulosin HCl 0.4 MG CAP PO SCH (08:22)
[2022-01-17] MEDS: Carbidopa/Levodopa CR 50-200 mg Tablet PO SCH (08:22)
[2022-01-17] MEDS: EPCLUSA PO SCH (08:22)
[2022-01-17] MEDS: Furosemide 40 MG TAB PO SCH (08:22)
[2022-01-17] MEDS: Pantoprazole 40 MG VIAL IVP SCH (08:23)
[2022-01-17 11:29] LABS: SARS-CoV-2 PCR by NAA Not Detected (NotDetected)
== END 2022-01-17 14:32 | disposition home or self-care (01) | DRG 871 ==
LOC: ERS 00:26 → ERHOLD 04:10 → IMCU/EMU 08:29 → T4-A 01-14 14:09
PROVIDERS: ADMIT Internal Medicine; ATTEND Internal Medicine
PROC: 30233N1 Transfusion of Nonautologous Red Blood Cells into Peripheral Vein, Percutaneous Approach (ICD-10-PCS; 2022-01-11)
PROC: 3E03329 Introduction of Other Anti-infective into Peripheral Vein, Percutaneous Approach (ICD-10-PCS; 2022-01-11)
PROC: 06L38CZ Occlusion of Esophageal Vein with Extraluminal Device, Via Natural or Artificial Opening Endoscopic (ICD-10-PCS; principal; 2022-01-12)
DX: A41.9 Sepsis, unspecified organism (principal); K72.00 Acute and subacute hepatic failure without coma; I85.11 Secondary esophageal varices with bleeding; E87.2 Acidosis; K92.2 Gastrointestinal hemorrhage, unspecified; R18.8 Other ascites; N17.9 Acute kidney failure, unspecified; D62 Acute posthemorrhagic anemia; D61.818 Other pancytopenia; D68.4 Acquired coagulation factor deficiency; K76.6 Portal hypertension; A04.72 Enterocolitis due to Clostridium difficile, not specified as recurrent; Z20.822 Contact with and (suspected) exposure to COVID-19; I10 Essential (primary) hypertension; R65.20 Severe sepsis without septic shock; G20 Parkinson's disease; B18.2 Chronic viral hepatitis C; N50.89 Other specified disorders of the male genital organs; K31.89 Other diseases of stomach and duodenum; K74.60 Unspecified cirrhosis of liver; E11.69 Type 2 diabetes mellitus with other specified complication; Z79.82 Long term (current) use of aspirin; Z79.899 Other long term (current) drug therapy; Z98.890 Other specified postprocedural states
CPT/HCPCS: 36415; 36416; 36430; 71045; 74177; 80048; 80053; 80076; 80202; 81003; 82010; 82105; 82140; 83605; 83690; 83880; 84484; 85025; 85610; 85730; 86850; 86900; 86901; 87040; 87521; 93005; 96365; 96367; 96374; 96375; C9113; J0692; J0696; J1815; J1940; J2354; J2405; J2543; J2704; J3370; J3430; J3490; J7050; P9016; P9047; Q9967; U0002; U0003; U0005

== ENCOUNTER 2022-03-30 20:57 | Observation (INO) | payer MEDICARE ==
[2022-03-30] MEDS ORDERED: Ondansetron PF 4 MG/2 ML Vial ONE (21:38)
[2022-03-30] MEDS ORDERED: Morphine 4 MG/ML VIAL ONE (21:38)
[2022-03-30 22:06] LABS: ALT (SGPT) 18 U/L (8-55); AST (SGOT) 46 U/L (5-34); Albumin 3.3 g/dL (3.4-4.8); Alkaline Phosphatase 180 U/L (40-110); Anion Gap 14 mmol/L (10-20); BUN (Urea Nitrogen) 6 mg/dL (8.4-25.7); Bilirubin, Total 3.2 mg/dL (0.2-1.2); Calc. Creatinine Clearance 0 mL/min (70-130); Calcium 8.9 mg/dL (7.8-10.44); Carbon Dioxide 19 mmol/L (23-31); Chloride 107 mmol/L (98-107); Globulin 4.5 g/dL (2.4-3.5); Glucose 141 mg/dL (80-115); Lipase 28 U/L (8-78); Protein, Total 7.8 g/dL (5.8-8.1); Sodium 136 mmol/L (136-145)
[2022-03-30 22:10] LABS: #Basophils 0.1 thou/uL (0.0-0.2); #Eosinphils 0.1 thou/uL (0.0-0.7); #Lymphocytes 0.4 thou/uL (1.20-3.40); #Monocytes 0.3 thou/uL (0.11-0.59); #Neutrophils 3.1 thou/uL (1.40-6.50); %Basophils 1.9 % (0.0-1.0); %Eosinophils 2.4 % (0.0-10.0); %Lymphocytes 11.2 % (21.0-51.0); %Monocytes 7.4 % (0.0-10.0); %Neutrophils 77.1 % (42.0-75.0); Anisocytosis SLIGHT = 6-15 cells (100X) (0-5/hpf); Hemoglobin 15.2 g/dL (14.0-18.0); MDiff Complete? YES; Mean Corpuscular HGB CONC 32.4 g/dL (32.0-36.0); Mean Corpuscular Hemoglobin 32.9 pg (27.0-31.0); Platelet Count 43 thou/uL (130-400); Platelet Morphology Comment Appears Decreased; RBC Distribution Width 16.3 % (11.5-14.5); Red Blood Cell (RBC) Count 4.61 mill/uL (4.70-6.10)
[2022-03-30 22:30] LABS: Bacteria/HPF None Seen HPF (None Seen); Bilirubin Negative (Negative); Blood, Urine 1+ (Negative); Clarity Clear (Clear); Glucose, Urine (Dipstick) Normal (Negative); Ketone, Urine Negative (Negative); Leukocyte Negative Leu/uL (Negative); Nitrite Negative (Negative); Protein, Urine (Dipstick) Negative (Neg-Trace); RBC/HPF 0-3 HPF (0-3); Squamous Epithelial 0-3 HPF (0-3); Urobilinogen 6 mg/dL (Less than 2); WBC/HPF 0-3 HPF (0-3); pH, Urine 5.5 (5.0-9.0)
[2022-03-31] MEDS ORDERED: Morphine 4 MG/ML VIAL ONE (00:20)
[2022-03-31 02:47] VITALS: BMI 34.3
[2022-03-31] MEDS ORDERED: Ondansetron ODT 4 MG TAB SL PRN (03:00)
[2022-03-31] MEDS ORDERED: Ondansetron PF 4 MG/2 ML Vial IVP PRN (03:00)
[2022-03-31] MEDS ORDERED: Sodium Chloride 0.9% 1,000 ML IV SCH (03:00)
[2022-03-31] MEDS ORDERED: Morphine 4 MG/ML VIAL SLOW IVP SCH (03:30)
[2022-03-31 05:21] LABS: SARS-CoV-2 NAA Rapid Test Not Detected (NotDetected)
[2022-03-31] MEDS ORDERED: Acetaminophen 325 MG TAB PO PRN (07:43)
[2022-03-31] MEDS ORDERED: Dextrose 5% in Water 1,000 ML IV PRN (07:48)
[2022-03-31] MEDS ORDERED: HumaLOG 300 UNITS/3 ML VIAL SC PRN (07:48)
[2022-03-31] MEDS ORDERED: Dextrose 50% Abboject 50 ML SYRINGE SLOW IVP PRN (07:48)
[2022-03-31] MEDS: Carbidopa/Levodopa CR 50-200 mg Tablet PO SCH ×2 (08:40→20:08)
[2022-03-31] MEDS: Tamsulosin HCl 0.4 MG CAP PO SCH (08:42)
[2022-03-31] MEDS: Spironolactone 25 MG TAB PO SCH ×2 (08:42→20:08)
[2022-03-31] MEDS: Ferrous Sulfate 325 MG TAB PO SCH (08:43)
[2022-03-31] MEDS: Furosemide 40 MG TAB PO SCH (08:43)
[2022-03-31] MEDS: Ciprofloxacin 500 MG TAB PO SCH (08:43)
[2022-03-31] MEDS ORDERED: Sofosbuvir/Velpatasvir [Epclusa 400 Mg-100 Mg Tablet] PO SCH (09:00)
[2022-03-31] MEDS ORDERED: SOFOSBUVIR PO SCH (09:00)
[2022-03-31] MEDS ORDERED: Spironolactone 100 MG TAB PO SCH (09:00)
[2022-03-31] MEDS ORDERED: VELPATASVIR PO SCH (09:00)
[2022-03-31] MEDS ORDERED: Non-Formulary Item 1 EACH (Ferrous Sulfate [Ferrous Sulfate] 325 MG Tab) PO SCH (09:00)
[2022-03-31] MEDS ORDERED: LACTULOSE 10 GM/15 ML PO SCH (09:00)
[2022-03-31] MEDS ORDERED: Non-Formulary Item 1 EACH (Carbidopa/Levodopa [Carbidopa-Levo Er 25-100 Tab] 1 EACH Table PO SCH (09:00)
[2022-03-31] MEDS ORDERED: [UNRECOGNIZED DRUG - OTHER] PO SCH (09:00)
[2022-03-31] MEDS: Escitalopram Oxalate 10 mg Tablet PO SCH (09:18)
[2022-03-31] MEDS ORDERED: ceFAZolin (BATCH) 2 GM in Premix Bag 1 BAG IVPB SCH (14:30)
[2022-04-01 05:39] LABS: INR-International Normal Ratio 1.5; Prothrombin Time 18.4 sec (12.0-14.7)
[2022-04-01 08:28] LABS: #Eosinphils 0.1 thou/uL (0.0-0.7); #Lymphocytes 0.6 thou/uL (1.20-3.40); #Monocytes 0.3 thou/uL (0.11-0.59); #Neutrophils 2.4 thou/uL (1.40-6.50); %Basophils 0.4 % (0.0-1.0); %Lymphocytes 16.7 % (21.0-51.0); %Monocytes 8.2 % (0.0-10.0); %Neutrophils 70.8 % (42.0-75.0); Hemoglobin 13.6 g/dL (14.0-18.0); Mean Corpuscular HGB CONC 32.3 g/dL (32.0-36.0); Mean Corpuscular Hemoglobin 33.3 pg (27.0-31.0); Mean Platelet Volume 9.7 fL (7.4-10.4); Platelet Count 37 thou/uL (130-400); RBC Distribution Width 16.1 % (11.5-14.5); Red Blood Cell (RBC) Count 4.07 mill/uL (4.70-6.10); White Blood Cell (WBC) Count 3.4 thou/uL (4.8-10.8)
[2022-04-01] MEDS: Carbidopa/Levodopa CR 50-200 mg Tablet PO SCH (08:47)
[2022-04-01] MEDS: Spironolactone 25 MG TAB PO SCH (08:50)
[2022-04-01] MEDS: Tamsulosin HCl 0.4 MG CAP PO SCH (08:50)
[2022-04-01] MEDS: Furosemide 40 MG TAB PO SCH (08:50)
[2022-04-01] MEDS: Escitalopram Oxalate 10 mg Tablet PO SCH (08:50)
[2022-04-01] MEDS: Ciprofloxacin 500 MG TAB PO SCH (08:50)
[2022-04-01] MEDS: Ferrous Sulfate 325 MG TAB PO SCH (08:50)
[2022-04-01] MEDS ORDERED: Lidocaine 1% w/Epinephrine 1:100K 20 ML VIAL ONE (09:32)
[2022-04-01] MEDS ORDERED: Bupivacaine PF 0.5% 30 ML VIAL ONE (09:32)
[2022-04-01] MEDS ORDERED: fentaNYL Citrate/PF 100 MCG/2 ML SYRINGE ONE (09:37)
[2022-04-01] MEDS ORDERED: ceFAZolin (BATCH) 2 GM/100 ML BAG ONE (09:46)
[2022-04-01] MEDS ORDERED: PHENYLEPHRINE-NS 100 MCG/ML 10 ML SYRINGE ONE (10:02)
[2022-04-01] MEDS ORDERED: Lidocaine 1% PF 5 ML VIAL ONE (10:02)
[2022-04-01] MEDS ORDERED: ePHEDrine 50 MG/ML VIAL ONE (10:02)
[2022-04-01] MEDS ORDERED: Ondansetron PF 4 MG/2 ML Vial ONE (10:02)
[2022-04-01] MEDS ORDERED: PROPOFOL 200 MG/20 ML VIAL ONE (10:02)
[2022-04-01] MEDS ORDERED: Ondansetron HCl/PF 4 MG/2 ML Vial IVP PRN (10:59)
[2022-04-01] MEDS ORDERED: Promethazine HCl 25 MG/ML VIAL IVPB PRN (10:59)
[2022-04-01] MEDS ORDERED: Promethazine HCl 25 MG/ML VIAL IM PRN (10:59)
[2022-04-01] MEDS ORDERED: traMADol HCl 50 MG TAB PO PRN (11:03)
[2022-04-01 12:25] VITALS: BP 147/81; TEMP 97.5
== END 2022-04-01 14:25 | disposition home or self-care (01) ==
LOC: ERS 20:57 → SURG A 03-31 02:09
PROVIDERS: ADMIT Hospitalist; ATTEND Hospitalist
PROC: 0WQF0ZZ Repair Abdominal Wall, Open Approach (ICD-10-PCS; principal; 2022-04-01)
DX: K42.0 Umbilical hernia with obstruction, without gangrene (principal); K56.609 Unspecified intestinal obstruction, unspecified as to partial versus complete obstruction; B18.2 Chronic viral hepatitis C; K70.31 Alcoholic cirrhosis of liver with ascites; K72.90 Hepatic failure, unspecified without coma; E11.9 Type 2 diabetes mellitus without complications; I10 Essential (primary) hypertension; G20 Parkinson's disease; J90 Pleural effusion, not elsewhere classified; R16.1 Splenomegaly, not elsewhere classified; K80.20 Calculus of gallbladder without cholecystitis without obstruction; F10.21 Alcohol dependence, in remission; K65.2 Spontaneous bacterial peritonitis; F14.11 Cocaine abuse, in remission; D69.6 Thrombocytopenia, unspecified; Z87.891 Personal history of nicotine dependence; Z79.2 Long term (current) use of antibiotics; Z79.84 Long term (current) use of oral hypoglycemic drugs; Z79.899 Other long term (current) drug therapy; Z20.822 Contact with and (suspected) exposure to COVID-19
CPT/HCPCS: 36430; 49587; 71046; 74018; 74177; 80053; 82140; 82962 ×2; 83690; 85025 ×2; 85610; 86850; 86900; 86901; 86920; 93005; 97116; 97139 ×4; P9035; U0002; 36415; 36416; 81003; 81015; 96374; 96375; 96376; G0378; J0690; J1642; J2270; J2405; J2704; J3490; J7050; S0020

== ENCOUNTER 2024-09-12 13:39 | Emergency (ER) | payer MEDICARE ==
[2024-09-12 15:57] LABS: #Basophils 0.04 10x3/uL (0.0-0.2); %Basophils 0.7 % (0.0-1.0); %Eosinophils 3.3 % (0.0-10.0); %Lymphocytes 10.5 % (21.0-51.0); %Monocytes 8.7 % (0.0-10.0); %Neutrophils 76.4 % (42.0-75.0); Hematocrit 44.2 % (42.0-52.0); Hemoglobin 15.4 g/dL (14.0-18.0); Mean Corpuscular HGB CONC 34.8 g/dL (32.0-36.0); Mean Corpuscular Hemoglobin 35.8 pg (27.0-31.0); Mean Corpuscular Volume 102.8 fL (78.0-98.0); Mean Platelet Volume 10.7 fL (7.4-10.4); Platelet Count 44 10x3/uL (130-400); RBC Distribution Width 14.4 % (11.5-14.5)
[2024-09-12 16:08] LABS: Anion Gap 13 mmol/L (10-20); BUN (Urea Nitrogen) 5 mg/dL (8.4-25.7); Calc. Creatinine Clearance 0 mL/min (70-130); Carbon Dioxide 19 mmol/L (23-31); Chloride 110 mmol/L (98-107); Potassium 3.9 mmol/L (3.5-5.1); Sodium 138 mmol/L (136-145)
[2024-09-12 16:09] LABS: ALT (SGPT) 6 U/L (8-55); AST (SGOT) 49 U/L (5-34); Albumin 3.1 g/dL (3.4-4.8); Alkaline Phosphatase 188 U/L (40-110); Calcium 8.6 mg/dL (7.8-10.44); Estimated GFR 99; Globulin 4.4 g/dL (2.4-3.5); Glucose 129 mg/dL (80-115); Protein, Total 7.5 g/dL (5.8-8.1)
== END 2024-09-12 17:06 | disposition home or self-care (01) ==
LOC: ERS 13:39
DX: S09.90XA Unspecified injury of head, initial encounter (principal); I10 Essential (primary) hypertension; E11.9 Type 2 diabetes mellitus without complications; Z87.891 Personal history of nicotine dependence; Z79.899 Other long term (current) drug therapy; Z79.84 Long term (current) use of oral hypoglycemic drugs; W01.10XA Fall on same level from slipping, tripping and stumbling with subsequent striking against unspecified object, initial encounter
CPT/HCPCS: 36415; 70450; 71045; 72125; 72170; 80053; 85025

== ENCOUNTER 2024-09-16 07:59 | Inpatient (IN) | payer MEDICARE ==
[2024-09-16] MEDS ORDERED: Pantoprazole 40 MG VIAL ONE (08:57)
[2024-09-16 08:58] LABS: #Basophils 0.05 10x3/uL (0.0-0.2); %Basophils 0.6 % (0.0-1.0); %Eosinophils 0.7 % (0.0-10.0); %Monocytes 8.8 % (0.0-10.0); %Neutrophils 82.2 % (42.0-75.0); Hematocrit 35.2 % (42.0-52.0); INR-International Normal Ratio 1.7; Mean Corpuscular HGB CONC 33.5 g/dL (32.0-36.0); Mean Corpuscular Hemoglobin 35.9 pg (27.0-31.0); Mean Platelet Volume 11.3 fL (7.4-10.4); PTT 35.2 sec (22.9-36.1); Platelet Count 64 10x3/uL (130-400); Prothrombin Time 19.6 sec (12.0-14.7); RBC Distribution Width 14.6 % (11.5-14.5); Red Blood Cell (RBC) Count 3.29 mill/uL (4.70-6.10)
[2024-09-16] MEDS ORDERED: Octreotide Acetate 1,250 MCG in Sodium Chloride 0.9% 250 ML 250 ML IVPB SCH ×2 (09:00→10:30)
[2024-09-16 09:12] LABS: ALT (SGPT) 22 U/L (8-55); AST (SGOT) 37 U/L (5-34); Albumin 2.6 g/dL (3.4-4.8); Alkaline Phosphatase 109 U/L (40-110); Anion Gap 14 mmol/L (10-20); BUN (Urea Nitrogen) 30 mg/dL (8.4-25.7); Bilirubin, Total 6.2 mg/dL (0.2-1.2); Calc. Creatinine Clearance 0 mL/min (70-130); Calcium 8.5 mg/dL (7.8-10.44); Carbon Dioxide 19 mmol/L (23-31); Chloride 109 mmol/L (98-107); Estimated GFR 98; Globulin 3.5 g/dL (2.4-3.5); Glucose 172 mg/dL (80-115); Lipase 9 U/L (8-78); Potassium 4.8 mmol/L (3.5-5.1); Protein, Total 6.1 g/dL (5.8-8.1); Sodium 137 mmol/L (136-145)
[2024-09-16 10:00] LABS: Bacteria/HPF None Seen HPF (None Seen); Bilirubin Negative (Negative); Blood, Urine 1+ (Negative); CAUTI Indications for Culture Alt mental st,lethar; Clarity Clear (Clear); Glucose, Urine (Dipstick) 30 mg/dL (Negative); Ketone, Urine 10 mg/dL (Negative); Leukocyte Negative Leu/uL (Negative); Nitrite Negative (Negative); Protein, Urine (Dipstick) Negative (Neg-Trace); RBC/HPF 0-3 HPF (0-3); Squamous Epithelial None Seen HPF (0-3); Urobilinogen Normal mg/dL (Less than 2); WBC/HPF 0-3 HPF (0-3)
[2024-09-16 10:02] LABS: Urine Culture Reflex No No
[2024-09-16] MEDS ORDERED: Sodium Chloride 0.9% 100 ML ONE (10:14)
[2024-09-16] MEDS ORDERED: cefTRIAXone (ROCEPHIN) 1 GM VIAL ONE (10:14)
[2024-09-16] MEDS ORDERED: Acetaminophen 650 MG Suppository PR PRN (10:27)
[2024-09-16] MEDS ORDERED: Dextrose 50% Abboject 50 ML SYRINGE SLOW IVP PRN (10:27)
[2024-09-16] MEDS ORDERED: Dextrose 5% in Water 1,000 ML IV PRN (10:27)
[2024-09-16] MEDS ORDERED: Glucagon 1 MG/ML KIT IM PRN (10:27)
[2024-09-16] MEDS ORDERED: Pantoprazole 80 MG in Sodium Chloride 0.9% 100 ML IVP SCH (10:30)
[2024-09-16 11:08] LABS: Hematocrit 27.4 % (42.0-52.0)
[2024-09-16 12:02] LABS: Lactic Acid 3.65 mmol/L (0.5-2.2)
[2024-09-16] MEDS ORDERED: Ondansetron PF 4 MG/2 ML Vial ONE (13:28)
[2024-09-16] MEDS ORDERED: Dexamethasone 20 MG/5 ML VIAL ONE (13:28)
[2024-09-16] MEDS ORDERED: fentaNYL 50 mcg/mL 1 mL Vial ONE (13:28)
[2024-09-16] MEDS ORDERED: Lidocaine 1% PF 5 ML VIAL ONE (13:28)
[2024-09-16] MEDS ORDERED: PROPOFOL 20 ML ONE (13:28)
[2024-09-16] MEDS ORDERED: SUCCINYLCHOLINE/SOD CL,ISO/PF 200 MG/10 ML SYRINGE FS ONE (13:28)
[2024-09-16] MEDS ORDERED: PHENYLEPHRINE-NS 100 MCG/ML 10 ML SYRINGE ONE (13:57)
[2024-09-16 17:39] VITALS: BMI 36.8
[2024-09-16] MEDS: Octreotide Acetate 50 MCG/ML AMP SLOW IVP SCH (18:13)
[2024-09-16] MEDS: Pantoprazole 80 MG, Admixture Fee 1 EACH in Sodium Chloride 0.9% 100 ML IVP SCH (18:13)
[2024-09-16] MEDS: Sodium Chloride 0.9% 1,000 ML IV SCH (18:13)
[2024-09-16] MEDS: Lactulose 20 GM (30 mL) UDCUP PO SCH (18:14)
[2024-09-16 18:42] LABS: Hematocrit 32.3 % (42.0-52.0)
[2024-09-17 00:05] LABS: Hematocrit 30.3 % (42.0-52.0)
[2024-09-17] MEDS ORDERED: Ondansetron ODT 4 MG TAB PO PRN (03:01)
[2024-09-17] MEDS ORDERED: Lorazepam 2 MG/ML VIAL IM PRN (03:01)
[2024-09-17] MEDS ORDERED: Electrolyte Replacement Protocol 1 EACH FS SCH (03:15)
[2024-09-17] MEDS: Lorazepam 1 MG TAB PO PRN (03:25)
[2024-09-17] MEDS: Thiamine HCl 200 MG/2 ML VIAL SLOW IVP SCH (03:25)
[2024-09-17 04:18] LABS: Hematocrit 30.6 % (42.0-52.0)
[2024-09-17 04:33] LABS: INR-International Normal Ratio 1.6; Prothrombin Time 18.7 sec (12.0-14.7)
[2024-09-17 04:36] LABS: ALT (SGPT) 20 U/L (8-55); AST (SGOT) 32 U/L (5-34); Albumin 2.4 g/dL (3.4-4.8); Alkaline Phosphatase 85 U/L (40-110); Anion Gap 12 mmol/L (10-20); BUN (Urea Nitrogen) 26 mg/dL (8.4-25.7); Bilirubin, Total 2.9 mg/dL (0.2-1.2); Calc. Creatinine Clearance 152 mL/min (70-130); Calcium 7.9 mg/dL (7.8-10.44); Carbon Dioxide 16 mmol/L (23-31); Chloride 115 mmol/L (98-107); Estimated GFR 99; Glucose 206 mg/dL (80-115); Potassium 4.1 mmol/L (3.5-5.1); Protein, Total 5.4 g/dL (5.8-8.1); Sodium 139 mmol/L (136-145)
[2024-09-17] MEDS: Multivit, Therapeutic 1 TAB PO SCH (08:52)
[2024-09-17] MEDS: Folic Acid 1 MG TAB PO SCH (08:52)
[2024-09-17] MEDS: Escitalopram Oxalate 10 mg Tablet PO SCH (08:52)
[2024-09-17] MEDS: Carbidopa/Levodopa [Carbidopa-Levo Er 25-100 Tab] PO SCH (10:13)
[2024-09-17 10:37] LABS: Lactic Acid 2.14 mmol/L (0.5-2.2)
[2024-09-17 10:41] LABS: Iron 156 ug/dL (65-175); Iron Binding Capacity, Total 210 mcg/dL (261-462)
[2024-09-17] MEDS: Insulin Lispro 100 UNIT/ML 10 ML VIAL SC PRN (11:32)
[2024-09-17] MEDS: Rifaximin 550 MG TAB PO SCH ×3 (11:33→20:23)
[2024-09-17 13:00] LABS: Hemoglobin 11.2 g/dL (14.0-18.0)
[2024-09-17] MEDS: Acetaminophen 325 MG TAB PO PRN (14:58)
[2024-09-18] MEDS ORDERED: Lorazepam 1 MG TAB PO PRN (03:01)
[2024-09-18 04:59] LABS: #Basophils Less than 0.03 10x3/uL (0.0-0.2); %Basophils 0.3 % (0.0-1.0); %Eosinophils 0.9 % (0.0-10.0); %Lymphocytes 10.3 % (21.0-51.0); %Monocytes 6.9 % (0.0-10.0); %Neutrophils 80.7 % (42.0-75.0); Hematocrit 29.6 % (42.0-52.0); Hemoglobin 9.5 g/dL (14.0-18.0); Mean Corpuscular HGB CONC 32.1 g/dL (32.0-36.0); Mean Corpuscular Hemoglobin 36.1 pg (27.0-31.0); Mean Corpuscular Volume 112.5 fL (78.0-98.0); Mean Platelet Volume 12.7 fL (7.4-10.4); Platelet Count 39 10x3/uL (130-400); RBC Distribution Width 14.7 % (11.5-14.5); Red Blood Cell (RBC) Count 2.63 mill/uL (4.70-6.10)
[2024-09-18 05:44] LABS: Anion Gap 12 mmol/L (10-20); BUN (Urea Nitrogen) 16 mg/dL (8.4-25.7); Calc. Creatinine Clearance 156 mL/min (70-130); Calcium 7.6 mg/dL (7.8-10.44); Carbon Dioxide 16 mmol/L (23-31); Chloride 115 mmol/L (98-107); Estimated GFR 100; Glucose 146 mg/dL (80-115); Potassium 4.4 mmol/L (3.5-5.1); Sodium 139 mmol/L (136-145)
[2024-09-18] MEDS ORDERED: Carbidopa/Levodopa 25-100 mg Tablet PO SCH (09:00)
[2024-09-18] MEDS: Pantoprazole DR 40 MG TAB PO SCH (20:17)
[2024-09-19] MEDS ORDERED: Lorazepam 1 MG TAB PO PRN (03:01)
[2024-09-19 04:49] LABS: #Basophils 0.03 10x3/uL (0.0-0.2); %Basophils 0.8 % (0.0-1.0); %Eosinophils 3.8 % (0.0-10.0); %Lymphocytes 12.3 % (21.0-51.0); %Monocytes 10.7 % (0.0-10.0); %Neutrophils 71.6 % (42.0-75.0); Anion Gap 7 mmol/L (10-20); BUN (Urea Nitrogen) 13 mg/dL (8.4-25.7); Calc. Creatinine Clearance 133 mL/min (70-130); Calcium 7.3 mg/dL (7.8-10.44); Carbon Dioxide 19 mmol/L (23-31); Chloride 115 mmol/L (98-107); Estimated GFR 95; Glucose 159 mg/dL (80-115); Hematocrit 29.2 % (42.0-52.0); Hemoglobin 9.7 g/dL (14.0-18.0); Mean Corpuscular HGB CONC 33.2 g/dL (32.0-36.0); Mean Corpuscular Hemoglobin 35.9 pg (27.0-31.0); Mean Corpuscular Volume 108.1 fL (78.0-98.0); Mean Platelet Volume 11.3 fL (7.4-10.4); Platelet Count 45 10x3/uL (130-400); Potassium 3.2 mmol/L (3.5-5.1); RBC Distribution Width 14.9 % (11.5-14.5); Sodium 138 mmol/L (136-145)
[2024-09-19] MEDS: Potassium Chloride 20 MEQ TAB PO SCH (08:02)
[2024-09-19] MEDS ORDERED: Meclizine HCl 25 MG TAB PO PRN (21:05)
[2024-09-20 03:03] LABS: #Basophils 0.05 10x3/uL (0.0-0.2); %Basophils 0.6 % (0.0-1.0); %Eosinophils 2.1 % (0.0-10.0); %Neutrophils 82.6 % (42.0-75.0); Hematocrit 35.2 % (42.0-52.0); Mean Corpuscular HGB CONC 34.1 g/dL (32.0-36.0); Mean Corpuscular Hemoglobin 36.7 pg (27.0-31.0); Mean Corpuscular Volume 107.6 fL (78.0-98.0); Mean Platelet Volume 10.9 fL (7.4-10.4); Platelet Count 66 10x3/uL (130-400); RBC Distribution Width 15.7 % (11.5-14.5); Red Blood Cell (RBC) Count 3.27 mill/uL (4.70-6.10)
[2024-09-20 04:44] LABS: A1c 179.118 g/dL; Hb (HGBA1c) 5305.755 umol/L; Hemoglobin A1c 5.2 % (4.0-6.0)
[2024-09-20 04:46] LABS: ALT (SGPT) 18 U/L (8-55); AST (SGOT) 45 U/L (5-34); Albumin 2.6 g/dL (3.4-4.8); Alkaline Phosphatase 114 U/L (40-110); Anion Gap 14 mmol/L (10-20); BUN (Urea Nitrogen) 13 mg/dL (8.4-25.7); Bilirubin, Total 2.4 mg/dL (0.2-1.2); Calc. Creatinine Clearance 0 mL/min (70-130); Calcium 7.7 mg/dL (7.8-10.44); Carbon Dioxide 15 mmol/L (23-31); Chloride 111 mmol/L (98-107); Estimated GFR 96; Globulin 3.3 g/dL (2.4-3.5); Glucose 156 mg/dL (80-115); Potassium 3.6 mmol/L (3.5-5.1); Protein, Total 5.9 g/dL (5.8-8.1); Sodium 136 mmol/L (136-145)
[2024-09-20] MEDS: Thiamine 100 MG TAB PO SCH (09:07)
[2024-09-20] MEDS: Ferrous Sulfate 325 MG TAB PO SCH (09:07)
[2024-09-20 10:41] VITALS: TEMP 98
[2024-09-20 13:18] VITALS: BP 116/69
== END 2024-09-20 15:50 | disposition home or self-care (01) | DRG 432 ==
LOC: SUATTDRO 07:59 → ERS 07:59 → 2NO 10:27
PROVIDERS: ADMIT Family Medicine; ATTEND Family Medicine
PROC: 0DJ08ZZ Inspection of Upper Intestinal Tract, Via Natural or Artificial Opening Endoscopic (ICD-10-PCS; principal; 2024-09-16)
DX: K70.30 Alcoholic cirrhosis of liver without ascites (principal); I85.11 Secondary esophageal varices with bleeding; K22.6 Gastro-esophageal laceration-hemorrhage syndrome; K76.6 Portal hypertension; D62 Acute posthemorrhagic anemia; E11.9 Type 2 diabetes mellitus without complications; G20.A1 Parkinson's disease without dyskinesia, without mention of fluctuations; K31.89 Other diseases of stomach and duodenum; Z79.899 Other long term (current) drug therapy; I10 Essential (primary) hypertension; F03.90 Unspecified dementia, unspecified severity, without behavioral disturbance, psychotic disturbance, mood disturbance, and anxiety; K76.82 Hepatic encephalopathy
CPT/HCPCS: 36415; 36416; 76700; 80048; 80053; 81001; 82105; 82140; 82728; 83036; 83540; 83550; 83605; 83690; 85014; 85018; 85025; 85610; 85730; 86850; 86900; 86901; 96365; 96366; 96368; 96375; J0696; J1100; J2354; J2405; J2470; J2704; J3010; J3411; J7030; J7050

== ENCOUNTER 2024-10-03 12:26 | Emergency (ER) | payer MEDICARE ==
[2024-10-03] MEDS ORDERED: Aspirin Chewable 81 MG TAB ONE (14:49)
[2024-10-03 15:35] LABS: #Basophils 0.05 10x3/uL (0.0-0.2); %Basophils 1.3 % (0.0-1.0); %Monocytes 6.3 % (0.0-10.0); %Neutrophils 74.1 % (42.0-75.0); Hematocrit 37.9 % (42.0-52.0); Hemoglobin 12.4 g/dL (14.0-18.0); Mean Corpuscular HGB CONC 32.7 g/dL (32.0-36.0); Mean Corpuscular Hemoglobin 34.4 pg (27.0-31.0); Mean Corpuscular Volume 105.3 fL (78.0-98.0); Mean Platelet Volume 10.3 fL (7.4-10.4); Platelet Count 68 10x3/uL (130-400); RBC Distribution Width 14.5 % (11.5-14.5)
[2024-10-03 15:51] LABS: Lipase 13 U/L (8-78)
[2024-10-03 15:57] LABS: Troponin I Less than 0.010 ng/mL (< 0.028)
[2024-10-03 16:13] LABS: Bacteria/HPF None Seen HPF (None Seen); Bilirubin Negative (Negative); Blood, Urine Negative (Negative); CAUTI Indications for Culture Dysuria,urgency,freq; Clarity Clear (Clear); Glucose, Urine (Dipstick) Normal (Negative); Ketone, Urine Negative (Negative); Leukocyte Negative Leu/uL (Negative); Nitrite Negative (Negative); Protein, Urine (Dipstick) Negative (Neg-Trace); RBC/HPF 0-3 HPF (0-3); Specific Gravity, Urine 1.014 (1.002-1.036); Squamous Epithelial None Seen HPF (0-3); WBC/HPF 0-3 HPF (0-3)
[2024-10-03 16:49] LABS: ALT (SGPT) 19 U/L (8-55); AST (SGOT) 40 U/L (5-34); Albumin 2.8 g/dL (3.4-4.8); Alkaline Phosphatase 155 U/L (40-110); Anion Gap 14 mmol/L (10-20); BUN (Urea Nitrogen) 5 mg/dL (8.4-25.7); Bilirubin, Total 2.9 mg/dL (0.2-1.2); Calc. Creatinine Clearance 0 mL/min (70-130); Calcium 8.4 mg/dL (7.8-10.44); Carbon Dioxide 17 mmol/L (23-31); Chloride 109 mmol/L (98-107); Estimated GFR 98; Globulin 3.9 g/dL (2.4-3.5); Glucose 116 mg/dL (80-115); Potassium 3.8 mmol/L (3.5-5.1); Protein, Total 6.7 g/dL (5.8-8.1); Sodium 136 mmol/L (136-145)
[2024-10-03 16:54] LABS: Urine Culture Reflex No No
[2024-10-03 18:18] LABS: Lactic Acid 1.88 mmol/L (0.5-2.2)
== END 2024-10-03 18:47 | disposition home or self-care (01) ==
LOC: ERS 12:26
DX: K74.60 Unspecified cirrhosis of liver (principal); K71.51 Toxic liver disease with chronic active hepatitis with ascites; E11.9 Type 2 diabetes mellitus without complications
CPT/HCPCS: 36415; 36416; 71045; 74177; 80053; 81001; 83605; 83690; 83735; 83880; 84484; 85025; 93005